=== PATIENT | female | born 1960 ===

== ENCOUNTER 2025-02-25 07:00 | Outpatient (CLI) | payer OTHER ==
[~2025-02-25] VITALS: Ht 167.6 cm; Wt 64.4 kg
[2025-02-25] MEDS ORDERED: COZAAR25 MG PO (11:03)
[2025-02-25] MEDS ORDERED: METFORMIN HCL500 M3 PO (11:04)
[2025-02-25] MEDS ORDERED: B12 ACTIVE1000 MCG PO (11:04)
[2025-02-25 11:33] VITALS: BP 150/80
== END 2025-02-25 07:15 | disposition home or self-care (01) ==
LOC: EKG 07:00 → ADM 11:15 → CIR.AMB 03-03 07:00 → EDSTATUS 03-03 11:15 → CIR.AMB 03-03 12:30
PROVIDERS: ATTEND Surgery
DX: R19.4 Change in bowel habit (principal); K52.0 Gastroenteritis and colitis due to radiation; K62.7 Radiation proctitis; D12.8 Benign neoplasm of rectum

== ENCOUNTER 2025-03-03 06:38 | Outpatient (CLI) | payer OTHER ==
[~2025-03-03 06:38] MED LIST: B12 ACTIVE1000 MCG PO; COZAAR25 MG PO; METFORMIN HCL500 M3 PO
== END 2025-03-03 06:40 | disposition home or self-care (01) ==
LOC: LAB 06:38
PROVIDERS: ATTEND Anesthesiology
DX: D75.838 Other thrombocytosis (principal); D69.1 Qualitative platelet defects

== ENCOUNTER 2025-06-05 07:00 | Day surgery (SDC) | payer OTHER ==
[2025-05-30 11:23] VITALS: BP 143/83
[~2025-06-05] VITALS: Ht 167.6 cm; Wt 63.5 kg
[2025-06-05] MEDS ORDERED: METRONIDAZOLE/SODIUM CHLORIDE 500 MG/100 ML PIGGYBACK IV ONE (07:38)
[2025-06-05] MEDS ORDERED: CEFTRIAXONE SODIUM 2,000 MG VIAL ONE (07:38)
[2025-06-05] MEDS ORDERED: HEMOSTATIC MATRIX 1 KIT KIT TOP ONE (08:50)
[2025-06-05] MEDS ORDERED: LIDOCAINE HCL 1%/EPINEPHRINE 20ML VIAL IJ ONE (08:50)
[2025-06-05] MEDS ORDERED: BUPIVACAINE HCL/MPF 0.5% 30ML VIAL ONE (08:50)
[2025-06-05] MEDS ORDERED: DIBUCAINE 30 GM TUBE ONE (08:50)
[2025-06-05] MEDS ORDERED: SUGAMMADEX SODIUM 200 MG/2 ML VIAL IV ONE (10:55)
[2025-06-05] MEDS ORDERED: RECTICARE30 GM TOP (11:20)
[2025-06-05] MEDS ORDERED: TRAM1TAB98 PO (11:20)
== END 2025-06-05 14:50 | disposition home or self-care (01) ==
LOC: CIR.AMB 07:00
PROVIDERS: ATTEND Surgery
DX: D12.9 Benign neoplasm of anus and anal canal (principal); Z91.013 Allergy to seafood; Z88.8 Allergy status to other drugs, medicaments and biological substances